=== PATIENT | male | born 1995 | race Two or more races ===

== ENCOUNTER 2017-11-23 07:48 | Emergency (ER) | payer SELFPAY ==
[~2017-11-23] VITALS: Ht 177.8 cm; Wt 100.0 kg
[2017-11-23 07:56] VITALS: BP 140/72; PULSE 88; RESP 20; TEMP 98.8; O2SAT 100
== END 2017-11-23 10:28 | disposition left against medical advice (07) ==
LOC: NED 07:48
DX: Z03.89 Encounter for observation for other suspected diseases and conditions ruled out (principal)
CPT/HCPCS: 99281